=== PATIENT | female | born 1995 | race African-American/Black ===

== ENCOUNTER 2020-07-22 07:18 | Emergency (ER) | payer MEDICAID ==
[~2020-07-22] VITALS: Ht 154.9 cm; Wt 101.0 kg
[2020-07-22] MEDS ORDERED: KETOROLAC 15MG/ML VIAL IV ONE (08:00)
[2020-07-22 09:28] VITALS: BP 109/76
== END 2020-07-22 09:39 | disposition home or self-care (01) ==
LOC: ER 07:18
DX: R51 Headache (principal); M25.511 Pain in right shoulder
CPT/HCPCS: 70450; 73030; 81025; 93005; 96374; 99284; J1885

== ENCOUNTER 2021-07-10 12:17 | Emergency (ER) | payer MEDICAID ==
[~2021-07-10] VITALS: Ht 157.5 cm; Wt 104.0 kg
[2021-07-10 12:48] VITALS: BP 114/63
== END 2021-07-10 17:35 | disposition left against medical advice (07) ==
LOC: ER 12:17
DX: Z53.21 Procedure and treatment not carried out due to patient leaving prior to being seen by health care provider (principal)

== ENCOUNTER 2023-06-13 22:29 | Emergency (ER) | payer MEDICAID ==
[~2023-06-13] VITALS: Ht 160 cm; Wt 105.0 kg
[2023-06-13 23:16] VITALS: BP 128/76; TEMP 98.4; O2SAT 100
[2023-06-14 02:09] LABS: CLARITY URINE CLEAR (CLEAR); COLOR URINE YELLOW (YELLOW); KETONES URINE NEGATIVE (NEGATIVE); LEUKOCYTE ESTERASE URINE NEGATIVE (NEGATIVE); NITRITE URINE NEGATIVE (NEGATIVE); OCCULT BLOOD URINE 3+ (NEGATIVE); PROTEIN URINE TRACE (NEGATIVE); SPECIFIC GRAVITY URINE 1.013 (1.005-1.030); UROBILINOGEN URINE 0.2 E.U./dL (0.2-1.0)
[2023-06-14] MEDS ORDERED: KETOROLAC 60MG/2ML VIAL IM ONE (03:00)
[2023-06-14 03:10] LABS: BASOPHILS % 0.6 % (0.0-2.0); EOSINOPHILS % 2.7 % (0.0-5.0); HEMOGLOBIN. 9.7 g/dL (12.0-16.0); LYMPHOCYTES % 30.9 % (20.0-50.0); MEAN CORPUSCULAR HEMOGLOBIN 20.6 pg (28.0-32.0); MEAN CORPUSCULAR VOLUME 65.8 fL (81.0-99.0); MEAN PLATELET VOLUME 8.6 fl (7.4-10.4); MONOCYTES % 4.5 % (2.0-8.0); NEUTROPHILS % 61.3 % (40.0-76.0); PLATELET 378 x1000/uL (130-400); RED BLOOD CELL COUNT 4.71 mill/uL (4.2-5.4)
[2023-06-14 03:19] LABS: CHLORIDE 107 mEq/L (98-107)
[2023-06-14 05:53] LABS: PLATELET ESTIMATE NORMAL
[2023-06-14] MEDS ORDERED: BISM-77 MT (06:10)
[2023-06-14] MEDS ORDERED: NAPR-681 PO (06:10)
[2023-06-14 06:21] VITALS: PULSE 92; RESP 16
== END 2023-06-14 06:23 | disposition home or self-care (01) ==
LOC: ER 06-14 00:18
DX: I88.0 Nonspecific mesenteric lymphadenitis (principal); D64.9 Anemia, unspecified
CPT/HCPCS: 99285; 74176; 80053; 81003; 81025; 83690; 85025; 36415; 96372; J1885

== ENCOUNTER 2023-12-08 13:14 | Emergency (ER) | payer MEDICAID, OTHER ==
[~2023-12-08] VITALS: Ht 167.6 cm; Wt 108.0 kg
[~2023-12-08 13:14] MED LIST: BISM-77 MT; NAPR-681 PO
[2023-12-08 13:23] VITALS: BP 127/95; PULSE 92; RESP 20; TEMP 98.4; O2SAT 99
== END 2023-12-08 16:45 | disposition home or self-care (01) ==
LOC: ER 15:00
DX: R51.9 Headache, unspecified (principal); R09.81 Nasal congestion
CPT/HCPCS: 99281

== ENCOUNTER 2024-05-30 15:07 | Emergency (ER) | payer OTHER ==
[~2024-05-30] VITALS: Ht 160 cm; Wt 90.0 kg
[2024-05-30 15:18] VITALS: O2SAT 100
[2024-05-30 15:35] LABS: HEMATOCRIT. 30.4 % (36.0-48.0); HEMOGLOBIN. 9.2 g/dL (12.0-16.0); MEAN CORPUSCULAR HEMOGLOBIN 20.1 pg (28.0-32.0); MEAN CORPUSCULAR HGB CONC 30.3 g/dL (31.0-37.0); MEAN CORPUSCULAR VOLUME 66.4 fL (81.0-99.0); MEAN PLATELET VOLUME 8.2 fl (7.4-10.4); PLATELET 522 x1000/uL (130-400); RED BLOOD CELL COUNT 4.57 mill/uL (4.2-5.4); WHITE BLOOD COUNT 9.7 x1000/uL (4.5-11.0)
[2024-05-30 15:43] LABS: CHLORIDE 105 mEq/L (98-107); POTASSIUM 3.8 mEq/L (3.5-5.1); SODIUM 137 mEq/L (136-145)
[2024-05-30 15:44] LABS: CARBON DIOXIDE 25 mEq/L (21-32)
[2024-05-30 15:49] LABS: CREATININE 0.9 mg/dL (0.6-1.0); GLUCOSE 111 mg/dL (70-105); UREA NITROGEN BLOOD 9 mg/dL (9-23)
[2024-05-30 15:51] LABS: ADD RBC MORPHOLOGY YES; DIFFERENTIAL COMMENT 1
[2024-05-30 16:15] LABS: CLARITY URINE CLOUDY (CLEAR); COLOR URINE RED (YELLOW); GLUCOSE URINE 3+ (NEGATIVE); KETONES URINE NEGATIVE (NEGATIVE); LEUKOCYTE ESTERASE URINE TRACE (NEGATIVE); NITRITE URINE NEGATIVE (NEGATIVE); OCCULT BLOOD URINE 3+ (NEGATIVE); PH URINE 5.5 (4.5-8.0); PROTEIN URINE 2+ (NEGATIVE); SPECIFIC GRAVITY URINE 1.044 (1.005-1.030); UROBILINOGEN URINE 0.2 E.U./dL (0.2-1.0)
[2024-05-30 16:41] LABS: HCG SCREEN NEGATIVE
[2024-05-30 16:44] LABS: BACTERIA URINE FEW; RBC URINE TNTC /hpf (0-2); SQUAMOUS EPITHELIAL CELL URINE 1+ /lpf (RARE/1+); YEAST URINE NONE SEEN
[2024-05-30] MEDS ORDERED: CEPH500C2 MT (17:44)
[2024-05-30] MEDS ORDERED: IBUP-2029 MT (17:44)
[2024-05-30 17:45] VITALS: BP 112/69; PULSE 88; RESP 18; TEMP 98.3
[2024-05-30 18:16] LABS: HYPOCHROMASIA 1+; MICROCYTOSIS 1+; PLATELET ESTIMATE INCREASED
== END 2024-05-30 18:00 | disposition home or self-care (01) ==
LOC: ER 15:07
DX: N39.0 Urinary tract infection, site not specified (principal); Z79.899 Other long term (current) drug therapy
CPT/HCPCS: 36415; 74176; 80048; 81003; 81025; 84703; 85025; 99284